=== PATIENT | male | born 1980 | race American Indian/Alaskan Native ===

== ENCOUNTER 2019-06-05 13:26 | Emergency (ER) | payer SELFPAY ==
[2019-06-05] MEDS ORDERED: LORazepam 2 MG/ML VIAL IM PRN (13:53)
[2019-06-05] MEDS ORDERED: SODIUM CHLORIDE 0.9% 1000 ML 2,000 ML IV ONE (13:53)
[2019-06-05] MEDS ORDERED: HALOPERIDOL LACTATE 5 MG/1 ML INJ IM PRN (13:53)
--- NOTE | 2019-06-05 13:55 | Emergency Department Report ---
<HEATH BELTRE - Last Filed: 06/05/19 15:54> ED General Adult HPI - General Chief complaint: Altered Mental Status Stated complaint: AMS Time Seen by Provider: 06/05/19 13:46 Source: patient, EMS ( EMS documentation not available at time of chart dictation ), RN notes reviewed Mode of arrival: Stretcher Limitations: Altered Mental Status - History of Present Illness Initial comments: This is a 38-year-old gentleman. This patient is not known to this provider previously. The patient is brought to the hospital by emergency medical services. Patient makes no complaint to this provider. History obtained from nursing documentation, EMS not available at this time for collateral information Pt reports to ER after being found in front of a leasing office. Pt was unresponsive per EMS. Pt med hx of HTN. Pt reports to doing "ice" today. Pt denies any chest pain, kelly. On arrival of EMS Pt was diaphoretic and hypotensiv e. 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 Pt is AOX2 upon arrival to [facility]. [ End ] -: This afternoon Quality: other Consistency: other Improves with: other Worsens with: other Associated Symptoms: other - Related Data Allergies Allergy/AdvReac Type Severity Reaction Status Date / Time No Known Allergies Allergy Verified 06/05/19 14:08 ED Review of Systems Comment: Unobtainable due to pts medical conditions (patient denies physical pain) ED Physical Exam - General Limitations: Other (intoxication) General appearance: in no apparent distress, appears intoxicated - Head Head exam: Present: atraumatic, normocephalic - Eye Eye exam: Present: normal appearance, EOMI. Absent: nystagmus - ENT ENT exam: Present: normal exam, normal orophraynx, mucous membranes moist, normal external ear exam - Neck Neck exam: Present: normal inspection, full ROM. Absent: tenderness, meningismus - Respiratory Respiratory exam: Present: normal lung sounds bilaterally. Absent: respiratory distress - Cardiovascular Cardiovascular Exam: Present: regular rate, normal rhythm, normal heart sounds. Absent: bradycardia, tachycardia, irregular rhythm, systolic murmur, diastolic murmur, rubs, gallop - GI/Abdominal GI/Abdominal exam: Present: soft. Absent: distended, tenderness, guarding, rebound, rigid, pulsatile mass - Rectal Rectal exam: Present: normal inspection - exam: Present: normal inspection External exam: Present: normal external exam - Extremities Exam Extremities exam: Present: normal inspection, full ROM, other (2+ pulses noted in the bilateral upper, lower extremities. There is no long bone tenderness. Musculoskeletal compartments are soft. The pelvis is stable.). Absent: pedal edema, joint swelling, calf tenderness - Back Exam Back exam: Present: normal inspection. Absent: tenderness, CVA tenderness (R), CVA tenderness (L), paraspinal tenderness, vertebral tenderness - Neurological Exam Neurological exam: Present: altered, other (there is no facial droop. Moves 4 extremities spontaneously to command.) - Psychiatric Psychiatric exam: Present: normal mood - Skin Skin exam: Present: warm, dry, intact, normal color. Absent: rash ED Course - Reevaluation(s) Reevaluation #1: 06/05/19 14:21 Differential diagnosis, including not limited to: Toxic encephalopathy, intracranial injury, dehydration, heat exhaustion Assessment and plan: 38-year-old gentleman, intoxicated, found outside, reportedly hypotensive, admitted to drug use, no indication of homicidality or suicidality, now, presenting with no acute complaints. Patient is intoxicated, therefore, we'll place him on a hold. He's not been aggressive, and has not endorse homicidality or suicidality. We will check CT scan of the brain, cervical spine, basic laboratory studies, observe until clinical sobriety. Reevaluation #2: 06/05/19 15:53 Patient in no acute distress. Vital signs remain stable. Care will be transferred to the oncoming physician, Dr. Hong, to follow-up on CT scan of the brain, cervical spine, remainder of laboratory studies (CBC, ck), and to discharge when clinically sober. 06/05/19 15:54 ED Medical Decision Making - Lab Data Result diagrams: 06/05/19 14:10 Vital Signs 06/05/19 13:45 Temperature 98.2 F Pulse Rate 91 H Respiratory 16 Rate Blood Pressure 134/84 Blood Pressure 134/84 [Right] O2 Sat by Pulse 99 Oximetry - EKG Data -: EKG Interpreted by Nd EKG shows normal: sinus rhythm Rate: normal - EKG Data When compared to previous EKG there are: previous EKG unavailable 06/05/19 14:23 There is no prior EKG available for comparison. This is a sinus rhythm, left axis deviation, right bundle branch block, high left ventricular voltage, left anterior fascicular block, there is no endorsement chest pain, the QTC is within normal limits, this EKG is abnormal, the EKG is not consistent with ST elevation myocardial infarction. - Radiology Data Radiology results: pending, report reviewed, image reviewed Print Report Referring Physician: HEATH BELTRE Patient Name: ADOLFO BUENO Date of : 1980 Sex: Male Report Date: 2019-06-05 Report Status: Finalized Findings [facility] [address] [place] [address] XRay Report Signed Patient: ADOLFO BUENO MR#: [id number] : 1980 Acct:[id number] Age/Sex: 38 / M ADM Date: 06/05/19 Loc: ED Attending Dr: Ordering Physician: HEATH BELTRE MD Date of Service: 06/05/19 Procedure(s): XR chest 1V ap Accession Number(s): [id number] cc: HEATH BELTRE MD Fluoro Time In Minutes: CHEST 1 VIEW INDICATION: ams weak hypotension. COMPARISON: None FINDINGS: Support devices: None. Heart: Within normal limits. Lungs/Pleura: No acute air space or interstitial disease. Additional findings: None. IMPRESSION: No acute findings. Signer Name: Adolfo Tillman Jr, MD Signed: 06/05/2019 2:25 PM Workstation Name: [id number] Transcribed By: TTR Dictated By: ADOLFO TILLMAN JR, MD Electronically Authenticated By: ADOLFO TILLMAN JR, MD Signed Date/Time: 06/05/19 1425 ED Disposition Clinical Impression: Amphetamine abuse, Toe sprain Disposition: DC-01 TO HOME OR SELFCARE Condition: Stable Instructions: Methamphetamine Abuse (ED), Foot Sprain (ED) Referrals: PRIMARY CAREMD [Primary Care Provider] - 3-5 Days <NUSRAT HONG - Last Filed: 06/06/19 00:58> ED Review of Systems ROS: Stated complaint: AMS Other details as noted in HPI ED Course Vital Signs 06/05/19 06/05/19 06/05/19 13:45 15:06 16:54 Temperature 98.2 F Pulse Rate 91 H 87 65 Respiratory 16 12 16 Rate Blood Pressure 134/84 Blood Pressure 134/84 141/80 148/79 [Right] O2 Sat by Pulse 99 100 100 Oximetry 06/05/19 18:43 Temperature Pulse Rate Respiratory Rate Blood Pressure Blood Pressure 157/76 [Right] O2 Sat by Pulse Oximetry ED Medical Decision Making - Lab Data Result diagrams: 06/05/19 14:10 06/05/19 14:10 Critical care attestation.: If time is entered above; I have spent that time in minutes in the direct care of this critically ill patient, excluding procedure time. ED Disposition Is pt being admited?: No Does the pt Need Aspirin: No Time of Disposition: 00:56
--- NOTE | 2019-06-05 14:30 | XRay Report ---
CHEST 1 VIEW INDICATION: ams weak hypotension. COMPARISON: None FINDINGS: Support devices: None. Heart: Within normal limits. Lungs/Pleura: No acute air space or interstitial disease. Additional findings: None. IMPRESSION: No acute findings. Signer Name: Adolfo Tillman Jr, MD Signed: 06/05/2019 2:25 PM Workstation Name: [id number]
[2019-06-05 14:55] LABS: INR 1.06 (0.87-1.13)
[2019-06-05 15:18] LABS: Alanine Aminotransferase 17 units/L (7-56); Albumin 4.1 g/dL (3.9-5); BUN/Creatinine Ratio 8; Blood Urea Nitrogen 12 mg/dL (9-20); Calcium 8.4 mg/dL (8.4-10.2); Hemolysis Index 12
[2019-06-05 16:08] LABS: Hematocrit 38.3 % (35.5-45.6); Hemoglobin 12.9 gm/dl (11.8-15.2); Mean Corpuscular HGB Conc 34 % (32-34); Mean Corpuscular Volume 88 fl (84-94); Platelet Count 174 K/mm3 (140-440); Red Blood Count 4.33 M/mm3 (3.65-5.03); Red Cell Distribution Width 14.5 % (13.2-15.2)
--- NOTE | 2019-06-05 16:49 | Cat Scan Report ---
CT head without contrast INDICATION : weak found down ams. TECHNIQUE: Axial imaging performed from the skull apex through the skull base without the use of con trast. All CT scans at this location are performed using CT dose reduction for ALARA by means of aut omated exposure control. COMPARISON: None FINDINGS: Parenchyma: No acute intracranial hemorrhage or parenchymal abnormality. Ventricles: Ventricles are normal in size and appear symmetric. Soft tissues: Soft tissues including the orbits appear normal. Bones: No acute osseous abnormality. Sinuses: Mild mucosal thickening involving some of the ethmoid air cells and the right maxillary sin us. Remaining sinuses and mastoid air cells are clear. IMPRESSION: No acute abnormality. Signer Name: Mark Jones MD Signed: 06/05/2019 4:44 PM Workstation Name: [id number]
--- NOTE | 2019-06-05 16:50 | Cat Scan Report ---
CT cervical spine spine without contrast INDICATION: weak found down ams. TECHNIQUE: Axial imaging performed through the cervical spine without the use of contrast. Sagittal and coronal reconstructed images were also reviewed. All CT scans at this location are performed us ing CT dose reduction for ALARA by means of automated exposure control. COMPARISON: None FINDINGS: Alignment: Spinal alignment is normal. Bones: There is no acute osseous abnormality. Mild multilevel discogenic DJD is present. Soft tissues: No acute or significant incidental soft tissue abnormality. IMPRESSION: No acute abnormality. Signer Name: Mark Jones MD Signed: 06/05/2019 4:45 PM Workstation Name: [id number]
[2019-06-05 18:46] VITALS: BP 157/76
[2019-06-05] MEDS ORDERED: ACETAMINOPHEN 325 MG TAB ONE (21:45)
[2019-06-05] MEDS ORDERED: ACETAMINOPHEN 325 MG TAB PO ONE (21:49)
== END 2019-06-06 04:41 | disposition home or self-care (01) ==
LOC: ED 13:26
DX: F15.10 Other stimulant abuse, uncomplicated (principal)
CPT/HCPCS: 36415; 70450; 71045; 72125; 80053; 82550; 84443; 85027; 85610; 93005; 93010; 99285; J7030; 80320; G0480